=== PATIENT | male | born 1940 | race Caucasian/White ===

== ENCOUNTER 2021-12-18 11:00 | Emergency (ER) | payer MEDICARE ==
[2021-12-18 13:07] LABS: #Basophils 0.1 10x3/uL (0.0-0.2); #Eosinphils 0.2 10x3/uL (0.0-0.5); #Monocytes 1.3 10x3/uL (0.0-1.1); #Neutrophils 6.2 10x3/uL (1.5-8.4); %Basophils 0.9 % (0.0-2.0); %Eosinophils 2.1 % (0.0-6.0); %Lymphocytes 23.6 % (18.0-47.0); %Monocytes 12.7 % (0.0-10.0); %Neutrophils 60.4 % (40.0-75.0); Hemoglobin 13.9 g/dL (13.5-17.5); Mean Corpuscular HGB CONC 32.5 g/dL (32.0-36.0); Mean Corpuscular Hemoglobin 28.7 pg (27.0-33.0); Mean Corpuscular Volume 88.4 fl (81.2-95.1); Mean Platelet Volume 9.1 fl (7.4-10.4); Platelet Count 257 10x3/uL (150-450); RBC Distribution Width 12.9 % (11.5-14.5); Red Blood Cell (RBC) Count 4.84 10x6/uL (4.32-5.72); White Blood Cell (WBC) Count 10.2 10x3/uL (3.5-10.5)
[2021-12-18 13:32] LABS: ALT (SGPT) 15 U/L (8-55); AST (SGOT) 26 U/L (5-34); Albumin 4.3 g/dL (3.4-4.8); Alkaline Phosphatase 58 U/L (40-110); Anion Gap 16 mmol/L (10-20); BUN (Urea Nitrogen) 18 mg/dL (8.4-25.7); Bilirubin, Total 0.9 mg/dL (0.2-1.2); Calc. Creatinine Clearance 0 mL/min (70-130); Calcium 9.3 mg/dL (7.8-10.44); Carbon Dioxide 23 mmol/L (23-31); Chloride 107 mmol/L (98-107); Glucose 105 mg/dL (83-110); Potassium 4.1 mmol/L (3.5-5.1); Protein, Total 7.3 g/dL (5.8-8.1); Sodium 142 mmol/L (136-145)
[2021-12-18 14:01] LABS: Bilirubin Neg (Negative); Blood, Urine Negative (Negative); Clarity Clear (Clear); Glucose, Urine (Dipstick) Normal (Negative); Ketone, Urine Negative (Negative); Leukocyte Negative (Negative); Nitrite Negative (Negative); Protein, Urine (Dipstick) 15 mg/dl (Neg-Trace); Specific Gravity, Urine 1.025 (1.002-1.036)
[2021-12-18 14:14] LABS: PTT 26.2 sec (22.0-33.0); Prothrombin Time 10.9 sec (9.5-12.1)
== END 2021-12-18 14:45 | disposition home or self-care (01) ==
LOC: CSHERS 11:00
DX: S09.90XA Unspecified injury of head, initial encounter (principal); W19.XXXA Unspecified fall, initial encounter
CPT/HCPCS: 36415; 36416; 70450; 72125; 84484; 85025; 85610; 85730; 93005

== ENCOUNTER 2021-12-19 13:16 | Outpatient (CLI) | payer MEDICARE | END 2021-12-19 13:17 | disposition home or self-care (01) | LOC: CSHULT 13:16 | PROVIDERS: ATTEND Urology | DX: N20.0 Calculus of kidney (principal) | CPT/HCPCS: 76770 ==

== ENCOUNTER 2021-12-26 12:01 | Emergency (ER) | payer MEDICARE | END 2021-12-26 14:57 | disposition home or self-care (01) | LOC: CSHERS 12:01 | DX: F07.81 Postconcussional syndrome (principal); R41.82 Altered mental status, unspecified | CPT/HCPCS: 70551 ==

== ENCOUNTER 2025-09-15 10:30 | Outpatient (CLI) | payer MEDICARE | END 2025-09-15 10:31 | disposition home or self-care (01) | LOC: CSHULT 10:30 | PROVIDERS: ATTEND Urology | DX: N20.0 Calculus of kidney (principal) | CPT/HCPCS: 74018; 76770 ==